=== PATIENT | female | born 1960 | race Caucasian/White ===

== ENCOUNTER 2021-09-25 09:20 | Outpatient (CLI) | payer OTHER | END 2021-09-25 09:24 | disposition home or self-care (01) | LOC: LAB 09:20 | DX: Z13.29 Encounter for screening for other suspected endocrine disorder (principal); Z12.11 Encounter for screening for malignant neoplasm of colon; E78.5 Hyperlipidemia, unspecified; E66.9 Obesity, unspecified; I10 Essential (primary) hypertension ==

== ENCOUNTER 2021-09-25 10:18 | Outpatient (CLI) | payer OTHER | END 2021-09-25 10:36 | disposition home or self-care (01) | LOC: MAMO-SONO 10:18 | DX: Z12.31 Encounter for screening mammogram for malignant neoplasm of breast (principal) ==

== ENCOUNTER 2024-08-25 14:00 | Emergency (ER) | payer OTHER ==
[~2024-08-25] VITALS: Ht 162.6 cm; Wt 84.8 kg
[2024-08-25] MEDS ORDERED: ATIVAN0.5 M1 PO (15:07)
[2024-08-25] MEDS ORDERED: NABUMETONE500 MG PO (15:07)
[2024-08-25] MEDS ORDERED: RESTORIL7.5 MG PO (15:08)
[2024-08-25 17:25] LABS: HEMATOCRIT 44.3 % (36.0-45.00); HEMOGLOBIN 14.8 g/dL (12.0-15.00); MEAN CELL VOLUME 89.9 fL (80.00-100.00); MEAN CORPUSCULAR HGB CONC 33.4 g/dl (32.0-36.0); PLATELET COUNT 228 K/uL (150-450); RED BLOOD COUNT 4.92 M/uL (4.00-6.00); RED CELL DISTRIBUTION WIDTH 12.9 % (11.5-14.5)
[2024-08-25 17:45] LABS: CALCIUM 8.6 mg/dL (8.5-10.1); CREATININE SERUM 0.78 mg/dL (0.55-1.02); GFR 75.08; POTASSIUM 3.8 mEq/L (3.5-5.1)
[2024-08-25 18:51] LABS: PH,URINE 5.5 (5.0-8.0); URINE APPEARANCE Turbid; URINE BILIRRUBIN Negative (NEGATIVE); URINE BLOOD Negative; URINE COLOR Dark Yellow; URINE GLUCOSE Negative (NEGATIVE); URINE KETONE Negative (NEGATIVE); URINE LEUKOCYTE Small; URINE NITRATE Negative; URINE PROTEIN 30 (NEGATIVE)
[2024-08-25 18:59] LABS: URINE BACTERIA 2602.1 uL (0.0-1933); URINE EPITHELIAL CELLS 54.9 uL (0.0-38.8); URINE RBC 17.5 uL (0.0-20.8); URINE WBC 148.9 uL (0.0-23.2)
[2024-08-25 19:24] LABS: URINE CAST 0.58 uL (0.0-1.40)
[2024-08-25 19:25] LABS: URINE CRYSTALS MANY /HPF
[2024-08-25] MEDS ORDERED: CIPROFLOXACIN IN 5 % DEXTROSE 400 MG/200 ML PIGGYBAG IV ONE ×2 (19:45→20:20)
== END 2024-08-25 22:25 | disposition home or self-care (01) ==
LOC: ER 14:00
PROVIDERS: Emergency Medicine
DX: K52.89 Other specified noninfective gastroenteritis and colitis (principal); R19.7 Diarrhea, unspecified
CPT/HCPCS: 36415; 96365; 99282; J3490

== ENCOUNTER 2025-05-17 14:46 | Outpatient (CLI) | payer OTHER ==
[~2025-05-17 14:46] MED LIST: ATIVAN0.5 M1 PO; NABUMETONE500 MG PO; RESTORIL7.5 MG PO
== END 2025-05-17 14:49 | disposition home or self-care (01) ==
LOC: SONOGRAMA 14:46
DX: S82.841D Displaced bimalleolar fracture of right lower leg, subsequent encounter for closed fracture with routine healing (principal); E04.1 Nontoxic single thyroid nodule

== ENCOUNTER 2025-06-14 09:32 | Outpatient (CLI) | payer OTHER | END 2025-06-14 09:33 | disposition home or self-care (01) | LOC: NUCLEAR 09:32 | DX: Z13.820 Encounter for screening for osteoporosis (principal); M81.0 Age-related osteoporosis without current pathological fracture ==